=== PATIENT | male | born 1990 | race Caucasian/White ===

== ENCOUNTER 2024-11-14 11:52 | Emergency (ER) | payer OTHER ==
[~2024-11-14] VITALS: Ht 175.3 cm; Wt 85.6 kg
[2024-11-14 11:54] VITALS: TEMP 98.2
[2024-11-14] MEDS: METHOCARBAMOL 500 MG TABLET PO ONE (13:49)
[2024-11-14] MEDS: HYDROCODONE/ACETAMINOPHEN 5-325 MG TABLET PO ONE (13:49)
[2024-11-14 14:00] VITALS: BP 144/79; PULSE 81; RESP 17; O2SAT 99
[2024-11-14 14:11] LABS: ANION GAP 5 mmol/L (8-16); CARBON DIOXIDE 30 mmol/L (22-29); CHLORIDE 108 mmol/L (98-107); CREATININE 1.69 mg/dL (0.60-1.30); GLOMERULAR FILTR. RATE CALC 47 mL/min (>60); GLUCOSE,RANDOM 121 mg/dL (70-110); POTASSIUM 4.4 mmol/L (3.5-5.1); SODIUM SERUM 143 mmol/L (136-145); UREA NITROGEN, BLOOD 15 mg/dL (7-18)
[2024-11-14] MEDS ORDERED: METH-812 PO (14:15)
[2024-11-14] MEDS ORDERED: HYDR-4062 PO (14:15)
[2024-11-14 14:19] LABS: URIC ACID < 1.0 mg/dL (2.6-7.2)
== END 2024-11-14 14:59 | disposition home or self-care (01) ==
LOC: EMS 11:52
DX: S39.012A Strain of muscle, fascia and tendon of lower back, initial encounter (principal); M54.42 Lumbago with sciatica, left side; X50.1XXA Overexertion from prolonged static or awkward postures, initial encounter; Y93.89 Activity, other specified; Y92.89 Other specified places as the place of occurrence of the external cause; Y99.8 Other external cause status
CPT/HCPCS: 80048; 84550; 99283